=== PATIENT | female | born 1945 | race Caucasian/White ===

== ENCOUNTER 2021-07-04 13:20 | Outpatient (CLI) | payer MEDICARE, BC | END 2021-07-04 13:21 | disposition home or self-care (01) | LOC: CSHMAMMO 13:20 | PROVIDERS: ATTEND Internal Medicine | DX: Z12.31 Encounter for screening mammogram for malignant neoplasm of breast (principal) | CPT/HCPCS: 77063; 77067 ==

== ENCOUNTER 2022-11-27 09:42 | Outpatient (CLI) | payer MEDICARE, BC | END 2022-11-27 09:43 | disposition home or self-care (01) | LOC: CSHRAD 09:42 | PROVIDERS: ATTEND Urology | DX: N20.0 Calculus of kidney (principal) | CPT/HCPCS: 74018 ==

== ENCOUNTER 2023-07-17 10:01 | Outpatient (CLI) | payer MEDICARE, BC | END 2023-07-17 10:02 | disposition home or self-care (01) | LOC: CSHMAMMO 10:01 | PROVIDERS: ATTEND Internal Medicine | DX: Z12.31 Encounter for screening mammogram for malignant neoplasm of breast (principal) | CPT/HCPCS: 77063; 77067 ==

== ENCOUNTER 2023-11-23 11:21 | Outpatient (CLI) | payer MEDICARE | END 2023-11-23 11:22 | disposition home or self-care (01) | LOC: CSHRAD 11:21 | PROVIDERS: ATTEND Urology | DX: N20.0 Calculus of kidney (principal); I87.8 Other specified disorders of veins | CPT/HCPCS: 74018 ==

== ENCOUNTER 2024-08-11 12:58 | Outpatient (CLI) | payer MEDICARE | END 2024-08-11 12:59 | disposition home or self-care (01) | LOC: CSHMAMMO 12:58 | PROVIDERS: ATTEND Internal Medicine | DX: Z12.31 Encounter for screening mammogram for malignant neoplasm of breast (principal) | CPT/HCPCS: 77063; 77067 ==

== ENCOUNTER 2024-11-28 07:58 | Outpatient (CLI) | payer MEDICARE ==
[2024-11-28] MEDS ORDERED: Iopamidol 300 61% 100 ML VIAL FS ONE (13:25)
== END 2024-11-28 07:59 | disposition home or self-care (01) ==
LOC: CSHCT 07:58
PROVIDERS: ATTEND Urology
DX: N20.0 Calculus of kidney (principal); R35.0 Frequency of micturition; N28.1 Cyst of kidney, acquired
CPT/HCPCS: 36415; 74178; 82565 ×2; Q9967

== ENCOUNTER 2025-08-14 10:47 | Outpatient (CLI) | payer MEDICARE | END 2025-08-14 10:48 | disposition home or self-care (01) | LOC: CSHMAMMO 10:47 | PROVIDERS: ATTEND Internal Medicine | DX: Z12.31 Encounter for screening mammogram for malignant neoplasm of breast (principal) | CPT/HCPCS: 77063; 77067 ==